=== PATIENT | male | born 1985 | race Asian ===

== ENCOUNTER 2019-12-13 11:35 | Emergency (ER) | payer MEDICAID ==
[~2019-12-13] VITALS: Ht 165.1 cm; Wt 77.1 kg
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
[2019-12-13 11:46] VITALS: BP 113/74
[2019-12-13] MEDS ORDERED: IBUPROFEN600 MG ORAL (12:16)
[2019-12-13] MEDS ORDERED: ROBAXIN-500MG ORAL (12:16)
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
[2019-12-13 12:25] VITALS: BP 115/78
--- NOTE | 2019-12-13 12:25 | NUR ---
ER DISCHARGE NOTE: Patient is cleared to be discharged per ERMD, pt is aox4, on room air, with stable vital signs as documented. pt was given dc and prescription instructions, pt was able to verbalize understanding, pt id band removed. pt is able to ambulate with steady gait. pt took all belongings.
== END 2019-12-13 12:25 | disposition home or self-care (01) ==
LOC: EMR 12:00
DX: G89.29 Other chronic pain (principal); M54.5 Low back pain
CPT/HCPCS: 99282